=== PATIENT | male | born 1985 | race Caucasian/White ===

== ENCOUNTER 2017-04-24 16:05 | Emergency (ER) | payer MEDICAID, OTHER ==
[~2017-04-24] VITALS: Ht 177.8 cm; Wt 88.0 kg
[2017-04-24 16:10] VITALS: Ht 177.8 cm; Wt 88.0 kg
[2017-04-24] MEDS ORDERED: IPRATROPIUM (NEB) 0.5 MG/2.5 ML AMP INH STA (17:26)
[2017-04-24] MEDS ORDERED: ALBUTEROL 0.5% (NEB) 2.5 MG/0.5 ML AMP INH STA (17:26)
[2017-04-24] MEDS ORDERED: KETOROLAC 60 MG INJ IM STA (17:26)
[2017-04-24] MEDS ORDERED: DEXAMETHASONE 10 MG/ML 1 ML INJ IM ONE (17:30)
--- NOTE | 2017-04-24 20:09 | RADRPT ---
PROCEDURE: XR Chest. CLINICAL INDICATION: cough TECHNIQUE: Single frontal view of the chest was obtained COMPARISON: None FINDINGS: The heart is normal in size. Mild scattered interstitial opacities. No focal consolidations, pleural effusion, or pneumothorax. The osseous structures are unremarkable. IMPRESSION: 1. Mild scattered interstitial opacities, which may be seen with small airway disease. 2. No focal consolidations. RPTAT:AAJJ Donato Rivera Physician Date Time Electronically viewed and signed by Donato Rivera Physician on 04/24/2017 20:08 QL/
[2017-04-24] MEDS ORDERED: PROMETHAZINE/DM (CUP) PO ONE (20:30)
[2017-04-24] MEDS ORDERED: D-ME473S2 PO (20:58)
[2017-04-24] MEDS ORDERED: IBUP-1542 PO (20:58)
[2017-04-24] MEDS ORDERED: AZIT250T94 PO (20:58)
[2017-04-24 21:05] VITALS: BP 109/63; PULSE 83; RESP 20; TEMP 98.9
--- NOTE | 2017-04-24 21:08 | ERD ---
ER Documentation Chief Complaint Chief Complaint cough, fever, body aches x 5 days. HPI 31-year-old male patient with no significant past medical history presents to the ED complaining of fever, dry cough, body aches that started 5 days ago. Denies any sick contacts. Reports that he has been taking Mucinex without relief of his symptoms. Denies any chest pain, shortness of breath, wheezing, abdominal pain, nausea, vomiting, diarrhea. Denies any recent traveling or leg swelling. Denies any IV drug use. Reports smoking cigarettes. ROS All systems reviewed and are negative except as per history of present illness. Medications Home Meds Active Scripts Ibuprofen* (Motrin*) 600 Mg Tab, 600 MG PO Q6, #30 TAB Prov:COMFORT POLLOCK PA-C 04/24/17 Dextromethorphan Hb-Promethazine Hcl* (Promethazine DM* Syrup) 473 Ml Syrup, 5 ML PO Q6 Y for COUGH, #100 ML Prov:COMFORT POLLOCK PA-C 04/24/17 Allergies Allergies: Coded Allergies: No Known Allergy (Unverified , 04/24/17) PMhx/Soc Medical and Surgical Hx: pt denies Medical Hx, pt denies Surgical Hx Hx Alcohol Use: No Hx Substance Use: No Hx Tobacco Use: No Smoking Status: Never smoker Physical Exam Vitals Vital Signs Date Time Temp Pulse Resp B/P Pulse Ox O2 Delivery O2 Flow Rate FiO2 04/24/17 21:05 98.9 83 20 109/63 97 Room Air 04/24/17 17:52 91 22 94 21 04/24/17 16:10 98.9 94 20 111/68 96 Physical Exam Const: Hjj-szl-jzsokfiir, well-nourished. In no acute distress. Head: Atraumatic, normocephalic Eyes: Normal Conjunctiva without injection. No purulent discharge. PERRL. EOMI ENT: Normal external ear. Ear canal without erythema. Tympanic membrane pearly terry without effusion or bulging. Nasal canal clear with normal turbinates. Moist oropharynx without tonsillar exudates. Non-erythematous pharynx. Uvula midline. No drooling. No trismus. Neck: Full range of motion. No meningismus. No cervical lymphadenopathy. Resp: Slight crackles noted and slight expiratory wheezing noted. No rhonchi, rales, or crackles. No accessory muscle use. No retractions. Cardio: Regular rate and rhythm. No murmurs, rubs or gallops. Abd: Soft, non tender, non distended. Normal bowel sounds. No palpable masses. No rebound tenderness. No guarding. Skin: No petechiae or rashes Back: No midline tenderness. No CVA tenderness. Ext: No cyanosis, or edema. Neur: Awake and alert. Psych: Normal Mood and Affect Results 24 hrs Current Medications Medications (Trade) Dose Ordered Sig/Danika Route PRN Reason Start Time Stop Time Status Last Admin Dose Admin Dexamethasone (Decadron) 10 mg ONCE ONCE IM 04/24/17 17:30 04/24/17 17:31 DC 04/24/17 17:48 Ketorolac Tromethamine (Toradol) 60 mg ONCE STAT IM 04/24/17 17:26 04/24/17 17:29 DC 04/24/17 17:47 Albuterol (Proventil 0.5% (Neb)) 5 mg ONCE STAT INH 04/24/17 17:26 04/24/17 17:29 DC 04/24/17 17:52 Ipratropium Arvin (Atrovent 0.02% (Neb)) 1 mg ONCE STAT INH 04/24/17 17:26 04/24/17 17:29 DC 04/24/17 17:52 Promethazine HCl/ Dextromethorphan (Phenergan-Dm) 5 ml ONCE ONCE PO 04/24/17 20:30 04/24/17 20:31 DC 04/24/17 20:36 Procedures/MDM 31 year old male patient with no significant past medical history presents to the ED complaining of fever, dry cough, body aches that started 5 days ago. Patient is afebrile and nontoxic-appearing. Patient has wheezing/crackles noted. A breathing treatment consisting of 5 mg continuous albuterol, 1 mg Atrovent was ordered to further treat patient. A chest x-ray was ordered to further evaluate patient. PROCEDURE: XR Chest. CLINICAL INDICATION: cough TECHNIQUE: Single frontal view of the chest was obtained COMPARISON: None FINDINGS: The heart is normal in size. Mild scattered interstitial opacities. No focal consolidations, pleural effusion, or pneumothorax. The osseous structures are unremarkable. IMPRESSION: 1. Mild scattered interstitial opacities, which may be seen with small airway disease. 2. No focal consolidations. This patient presents to the ED with symptoms consistent with bronchitis. Patient is afebrile and has normal vital signs. Patient's physical exam include lungs which were clear to auscultation and a normal pulse oximetry. There is a low suspicion for pneumothorax, mononucleosis, pulmonary embolism, epiglottitis, otitis media, otitis externa, viral/strep pharyngitis, sinusitis, peritonsillar abscess, mastoiditis, retropharyngeal abscess, meningitis, sepsis , acute abdomen or other emergent conditions. Fluids, rest, and symptomatic treatment are recommended for the management of patient's symptoms. Discharge medications: Ibuprofen, Promethazine DM Patient was instructed to return to the ED for any new or worsening symptoms. They should otherwise follow up with the primary care provider within 1-2 days. The patient's questions were answered at the time of discharge. Patient understood and agreed with discharge management. Smoking Cessation Therapy: Pt. was lectured for greater than 3 minutes on the health risks of continued smoking and the benefits of cessation. Patient was given a call on April 25, 2017, a message was left to prescribe Zithromax for possible pneumonia however patient did not return the call. If patient does call back, please prescribe Zithromax. This was discussed with my supervising physician, Dr. Sola Diaz who is aware of the situation and agreed with the management and discharge plan. On April 27, 2017, 3PM, a prescription for Zithromax into was called into [facility] [address] [place] [address] ([phone]). Departure Diagnosis: Primary Impression: Cough Condition: Stable Patient Instructions: Uri, Viral W/ Wheezing (Adult) Referrals[facility] Usted se alvarez hecho un examen mdico de control que le indica que no est en irineo condicin que requiera tratamiento urgente en el Departamento de Emergencia. Un estudio ms profundo y el tratamiento de lincoln condicin pueden esperar sin ningn riesgo hasta que usted sea atendida/o en el consultorio de lincoln mdico o irineo cl ezekiel. Es responsabilidad suya arreglar irineo greta para el seguimiento del darek. MANEJO DE CONDICIONES NO URGENTES EN EL FUTURO 1) Si usted tiene un mdico de atencin primaria: Usted debera llamar a lincoln mdico de atencin primaria antes de venir al departamento de emergencia. Despus de las horas de consultorio, lincoln doctor o lincoln asociado/a est disponible por telfono. El mdico o enfermero de karin en el servicio telefnico puede asesorarle por jessa medio para atender el problema, o darek contrario se puede programar irineo greta. 2) Si usted no tiene un mdico de atencin primaria: Llame al mdico o clnica de referencia que aparece abajo katherine las horas de consultorio para hacer irineo greta para que le vean. CLINICAS: [facility] [phone] [facility] [phone] [facility] [phone] [address] [facility] [facility] [phone] [address] [facility] [facility] [phone] [address] [facility]. [phone] [address] [facility]. [facility] () Usted se alvarez hecho un examen mdico de control que le indica que no est en irineo condicin que requiera tratamiento urgente en el Departamento de Emergencia. Un estudio ms profundo y el tratamiento de lincoln condicin pueden esperar sin ningn riesgo hasta que usted sea atendida/o en el consultorio de lincoln mdico o irineo cl ezekiel. Es responsabilidad suya arreglar irineo greta para el seguimiento del darek. MANEJO DE CONDICIONES NO URGENTES EN EL FUTURO 1) Si usted tiene un mdico de atencin primaria: Usted debera llamar a lincoln mdico de atencin primaria antes de venir al departamento de emergencia. Despus de las horas de consultorio, lincoln doctor o lincoln asociado/a est disponible por telfono. El mdico o enfermero de karin en el servicio telefnico puede asesorarle por jessa medio para atender el problema, o darek contrario se puede programar irineo greta. 2) Si usted no tiene un mdico de atencin primaria: Llame al mdico o condado institucions de referencia que aparece abajo katherine las horas de consultorio para hacer irineo greta para que le vean. SI USTED NO PUEDE PAGAR PARA CHEYANNE UN MEDICO puede ir a: [facility] [address] [place] [address] [facility] [address] [place] [address] [facility] [address] [place] [address] [facility] [address] [place] [id number] [facility] Additional Instructions: Call your primary care doctor TOMORROW for an appointment during the next 1-2 days. Follow up with your blood work you obtained from the primary care physician. See the doctor sooner or return here if your condition worsens before your appointment time - shortness of breath, fever, wheezing, chest pain , etc. COMFORT POLLOCK PA-C Apr 24, 2017 21:08
--- NOTE | 2017-04-26 23:15 | QN ---
Documentation Comment 04/26/2017, 9:10 PM. Patient called in response to the voicemail message left for him. I reviewed patient's chart, patient needs prescription of azithromycin. I asked patient for name and phone number of his pharmacy. Patient given the phone number for [facility] at [phone] but denies [place]. . Patient also requests pain medication "stronger than ibuprofen", as well as cough medicine with codeine. I informed patient that I cannot calling the prescription for controlled medication. I advised patient to follow-up with the PCP. I called the phone number provided by the patient, the pharmacy had already closed. There is no pharmacy voicemail option. I was unable to call in the prescription. KINGA MOYA LAPPER Apr 26, 2017 23:15
== END 2017-04-24 21:11 | disposition home or self-care (01) ==
LOC: FTE 16:05
DX: R05 Cough (principal)
CPT/HCPCS: 71010; 94644; 96372; J1100; J1885; Z7502; Z7610; 94664